=== PATIENT | male | born 1960 | race African-American/Black ===

== ENCOUNTER → 2019-09-25 | Day surgery (SDC) | payer OTHER ==
[2019-09-20 15:15] LABS: ANION GAP 12.9 mmol/L (8-16); BLOOD UREA NITROGEN 18 mg/dL (7-26); BUN/CREATININE RATIO 15 (6-25); CALCIUM 9.7 mg/dL (8.4-10.2); CARBON DIOXIDE 28 mmol/L (22-29); CHLORIDE 101 mmol/L (98-107); CREATININE, SERUM 1.22 mg/dL (0.72-1.25); EST GLOMERULAR FILTRATION RATE > 60 ML/MIN (60-); GLUCOSE 90 mg/dL (74-118); POTASSIUM 3.9 mmol/L (3.5-5.1); SODIUM 138 mmol/L (136-145)
[~2019-09-25] MED LIST: ACETAMINOPHEN 1000 MG/100 ML IV ONE; BUPIVACAINE HCL 0.5% INJ 30 ML VIAL INJ ONE; CEFAZOLIN SOD 1 GM/NS 50ML 100 ML IV ONE; DEXAMETHASONE SOD PHOS INJ 4 MG/ML VIAL ONE; EPHEDRINE SULFATE INJ 50 MG/ML VIAL ONE; FINASTERIDE5 MG PO; FLOMAX0.4 MG PO; HYDROCHLOROTHIA25 MG PO; KETOROLAC TROMETHAMINE 30 MG/ML VIAL ONE; LIDOCAINE HCL 2% LOCAL INJ 5 ML SDV VIAL INJ ONE; LIPITOR10 MG PO; LISINOPRIL10 MG PO; METOPROLOL SUCC50 MG PO; ONDANSETRON HCL INJ 2MG/ML 2ML 2 MG/ML VIAL ONE; PROPOFOL IV EMULSION 10 MG/ML 20 ML VIAL ONE; SEVOFLURANE INHAL SOLN 250 ML PEN BTL ONE
[2019-09-25 09:45] VITALS: BP 114/81
--- NOTE | 2019-09-26 15:34 | Operative Report ---
DATE OF PROCEDURE: 09/25/2019 SURGEON: Ronald Woods MD PREOPERATIVE DIAGNOSES: 1. Right knee medial meniscus tear. 2. Right knee degenerative joint disease. SECONDARY DIAGNOSES: 1. Left knee medial meniscus tear. 2. Left knee degenerative joint disease. PROCEDURES PERFORMED: The patient underwent right knee examination under anesthesia, right knee arthroscopy, right knee partial medial meniscectomy, and right knee chondroplasty of the patella, the trochlea, the medial femoral condyle, the medial tibial plateau, the lateral femoral condyle, and the lateral tibial plateau. Then, the patient underwent a left knee exam under anesthesia, left knee arthroscopy, left knee partial meniscectomy, and left knee chondroplasty of the patella, the trochlea of the medial femoral condyle, the medial tibial plateau, the lateral femoral condyle, and the lateral tibial plateau. ANESTHESIA: General endotracheal intubation anesthesia. IV FLUIDS: Per the Anesthesia record. BRIEF DESCRIPTION OF THE PATIENT'S OPERATIVE PROCEDURE: Mr. Chi was taken to the operating room and placed in supine position on the operating table. Following induction of general anesthesia as well as endotracheal intubation, the patient's bilateral lower extremities were examined under anesthesia. He was found to have bilateral knee effusions. There was no evidence of ligamentous laxity. The patient's lower extremity was prepped and draped in standard surgical fashion. The case was begun by providing the right knee arthroscopy. A two-port technique used to provide the patient right knee arthroscopy. The scope was placed within the knee joint atraumatically. Examination of suprapatellar pouch and medial and lateral gutters found no evidence of loose bodies. There was, however, chondromalacia of the patellar and trochlear surfaces. The scope was advanced to medial compartment. Examination of the medial compartment demonstrated a torn medial meniscus. There was an extruded fragment of the medial meniscus out of the knee towards the medial gutter. A combination of biting forceps and a motorized shaver used to resect the torn portion of the meniscus. The extruded fragment was also pulled back into the knee and excised. Chondroplasties of the medial femoral condyle and medial tibial plateau performed at this time. Scope was advanced to the intercondylar notch. The anterior cruciate ligament was identified and found to be intact. Scope was advanced into the lateral compartment. Chondromalacia of the articulating surfaces were encountered. A chondroplasty of the lateral femoral condyle and lateral tibial plateau performed at this time. The scope was then placed in suprapatellar pouch and chondroplasties of the patella and trochlea were performed. The knee was deflated with sterile normal saline. The portal sites were closed. Attention was then turned to the left knee. A two-port technique used to provide the patient arthroscopic evaluation of the left knee. Scope was placed within the knee joint atraumatically. Examination of the suprapatellar pouch and medial and lateral gutters found no evidence of loose bodies. There was evidence of chondromalacia of the patellar and trochlear surfaces. Scope was advanced into the medial compartment, and there was a greater degree of arthritis in the medial compartment as compared to the right knee. There was a macerated medial meniscus tear. A combination of biting forceps and a motorized shaver were used to resect the torn portion of meniscus. Chondroplasties of the medial femoral condyle and medial tibial plateau were performed at this time. Scope was advanced to the intercondylar notch. The anterior cruciate ligament was identified and found to be intact. The scope was advanced into the lateral compartment and chondroplasties of the lateral tibial plateau and lateral femoral condyle were performed at this time. Scope was advanced into the suprapatellar pouch and chondroplasties of the patella and trochlea were performed. Left knee was then deflated with sterile normal saline. The portal sites were closed. The knee was injected with 0.5% Marcaine with epinephrine. Sterile dressings were applied to both knees. The patient was then awakened and taken to postanesthesia care unit in stable condition. MD CHANTELL Correa/SHWETA /[id number]
== END | disposition home or self-care (01) ==
LOC: OR 05:22
PROVIDERS: ATTEND Specialist
DX: S83.222A Peripheral tear of medial meniscus, current injury, left knee, initial encounter (principal); S83.221A Peripheral tear of medial meniscus, current injury, right knee, initial encounter; M17.0 Bilateral primary osteoarthritis of knee; M22.42 Chondromalacia patellae, left knee; M22.41 Chondromalacia patellae, right knee; I10 Essential (primary) hypertension; R00.1 Bradycardia, unspecified; F41.9 Anxiety disorder, unspecified; X58.XXXA Exposure to other specified factors, initial encounter; Z01.810 Encounter for preprocedural cardiovascular examination; Z01.812 Encounter for preprocedural laboratory examination; Z11.59 Encounter for screening for other viral diseases; Z68.30 Body mass index [BMI] 30.0-30.9, adult; Z87.891 Personal history of nicotine dependence
CPT/HCPCS: 29881; 36415; 80048; 87635; 93005; J0131; J0690; J1100; J1885; J2001; J2405; J2704

== ENCOUNTER 2020-04-30 19:41 | Emergency (ER) | payer OTHER ==
[~2020-04-30] VITALS: Ht 172.7 cm; Wt 90.7 kg
[~2020-04-30 19:41] MED LIST changes: -ACETAMINOPHEN 1000 MG/100 ML IV ONE; -BUPIVACAINE HCL 0.5% INJ 30 ML VIAL INJ ONE; -CEFAZOLIN SOD 1 GM/NS 50ML 100 ML IV ONE; -DEXAMETHASONE SOD PHOS INJ 4 MG/ML VIAL ONE; -EPHEDRINE SULFATE INJ 50 MG/ML VIAL ONE; -KETOROLAC TROMETHAMINE 30 MG/ML VIAL ONE; -LIDOCAINE HCL 2% LOCAL INJ 5 ML SDV VIAL INJ ONE; -ONDANSETRON HCL INJ 2MG/ML 2ML 2 MG/ML VIAL ONE; -PROPOFOL IV EMULSION 10 MG/ML 20 ML VIAL ONE; -SEVOFLURANE INHAL SOLN 250 ML PEN BTL ONE
[2020-04-30] MEDS ORDERED: CEFTRIAXONE SOD 1 GM VIAL IM ONE (20:15)
[2020-04-30] MEDS ORDERED: PREDNISONE 20 MG TAB PO ONE (20:15)
[2020-04-30] MEDS ORDERED: KETOROLAC TROMETHAMINE 60 MG/2 ML VIAL IM ONE (20:15)
[2020-04-30] MEDS ORDERED: ACETAMINOPHEN 325 MG TAB PO ONE (20:15)
[2020-04-30] MEDS ORDERED: PREDNISONE 20 MG TAB ONE (20:35)
[2020-04-30] MEDS ORDERED: KETOROLAC TROMETHAMINE 60 MG/2 ML VIAL ONE (20:35)
[2020-04-30] MEDS ORDERED: CEFTRIAXONE SOD 1 GM VIAL ONE (20:36)
[2020-04-30] MEDS ORDERED: LIDOCAINE HCL 1% LOCAL INJ 20 ML VIAL ONE (20:36)
[2020-04-30] MEDS ORDERED: ACETAMINOPHEN 325 MG TAB ONE (20:36)
[2020-04-30] MEDS ORDERED: AZITHROMYCIN500 MG PO (20:43)
[2020-04-30] MEDS ORDERED: CEFDINIR300 MG PO (20:43)
[2020-04-30] MEDS ORDERED: PREDNISONE20 MG PO (20:43)
[2020-04-30] MEDS ORDERED: BROMFED DM COU118 ML PO (20:47)
[2020-04-30 21:02] VITALS: BP 160/92
== END 2020-04-30 21:02 | disposition home or self-care (01) ==
LOC: FSED 19:50
DX: J20.9 Acute bronchitis, unspecified (principal); J06.9 Acute upper respiratory infection, unspecified; R51.9 Headache, unspecified; R05 Cough; I10 Essential (primary) hypertension; E11.9 Type 2 diabetes mellitus without complications; E78.00 Pure hypercholesterolemia, unspecified
CPT/HCPCS: 36415; 82948; 87400; 96372; 99283; J0696; J1885; J2001; J7512

== ENCOUNTER 2021-10-05 08:11 | Emergency (ER) | payer OTHER ==
[~2021-10-05] VITALS: Ht 172.7 cm; Wt 88.5 kg
[~2021-10-05 08:11] MED LIST changes: +AZITHROMYCIN500 MG PO; +BROMFED DM COU118 ML PO; +CEFDINIR300 MG PO; +PREDNISONE20 MG PO
[2021-10-05] MEDS ORDERED: AMOX TR-K CLV1 EAC2 PO (09:15)
== END 2021-10-05 09:51 | disposition home or self-care (01) ==
LOC: FSED 08:11
DX: J01.90 Acute sinusitis, unspecified (principal); I10 Essential (primary) hypertension; E78.5 Hyperlipidemia, unspecified; E11.9 Type 2 diabetes mellitus without complications; E78.00 Pure hypercholesterolemia, unspecified
CPT/HCPCS: 99282

== ENCOUNTER → 2024-03-30 | Day surgery (SDC) | payer OTHER ==
[~2024-03-30] MED LIST changes: +AMLODIPINE-BEN1 EAC5 PO; +AMOX TR-K CLV1 EAC2 PO; +FENTANYL CITRATE/PF 100MCG/2 ML INJ ONE; +GLYCOPYRROLATE INJ 0.2 MG/ML VIAL ONE; +LIDOCAINE HCL 2% LOCAL INJ 5 ML SDV VIAL INJ ONE; +METFORMIN HCL500 MG PO; +MIDAZOLAM HCL 2 MG/2 ML VIAL ONE; +ONDANSETRON ODT4 MG PO; +PANTOPRAZOLE SO40 MG PO; +PROPOFOL IV EMULSION 10 MG/ML 20 ML VIAL ONE; +VITAMIN B COMP1 EACH PO
[2024-03-30] MEDS: LACTATED RINGER'S 1,000 ML ONE (08:16)
[2024-03-30 10:10] VITALS: BP 107/80; PULSE 64; RESP 16; TEMP 97.8; O2SAT 97
== END | disposition home or self-care (01) ==
LOC: OR 07:15
PROVIDERS: ATTEND Internal Medicine Gastroenterology
DX: K29.50 Unspecified chronic gastritis without bleeding (principal); B96.81 Helicobacter pylori [H. pylori] as the cause of diseases classified elsewhere; K44.9 Diaphragmatic hernia without obstruction or gangrene; K21.9 Gastro-esophageal reflux disease without esophagitis; K59.00 Constipation, unspecified; K76.0 Fatty (change of) liver, not elsewhere classified; E11.9 Type 2 diabetes mellitus without complications; I10 Essential (primary) hypertension; Z01.810 Encounter for preprocedural cardiovascular examination; Z79.84 Long term (current) use of oral hypoglycemic drugs; Z79.899 Other long term (current) drug therapy; Z68.31 Body mass index [BMI] 31.0-31.9, adult; Z87.19 Personal history of other diseases of the digestive system
CPT/HCPCS: 43239; 93005; J2003; J2250

== ENCOUNTER 2024-04-22 14:23 | Emergency (ER) | payer OTHER ==
[~2024-04-22] VITALS: Ht 172.7 cm; Wt 94.6 kg
[~2024-04-22 14:23] MED LIST changes: -FENTANYL CITRATE/PF 100MCG/2 ML INJ ONE; -GLYCOPYRROLATE INJ 0.2 MG/ML VIAL ONE; -LIDOCAINE HCL 2% LOCAL INJ 5 ML SDV VIAL INJ ONE; -MIDAZOLAM HCL 2 MG/2 ML VIAL ONE; -PROPOFOL IV EMULSION 10 MG/ML 20 ML VIAL ONE
[2024-04-22] MEDS ORDERED: OMEPRAZOLE40 MG PO (15:11)
[2024-04-22] MEDS ORDERED: METOPROLOL TART50 MG PO (15:11)
[2024-04-22] MEDS ORDERED: POLYETHYLENE GL17 GM PO (15:11)
[2024-04-22] MEDS ORDERED: METRONIDAZOLE500 MG PO (15:11)
[2024-04-22] MEDS ORDERED: TETRACYCLINE H500 MG PO (15:11)
[2024-04-22] MEDS ORDERED: LOTREL 5-20 MG1 EACH (15:11)
[2024-04-22] MEDS ORDERED: PROBIOTIC & AC1 EACH PO (15:39)
[2024-04-22 15:48] VITALS: PULSE 73; RESP 16; TEMP 98.1; O2SAT 95
== END 2024-04-22 15:48 | disposition home or self-care (01) ==
LOC: FSED 14:30
DX: R05.9 Cough, unspecified (principal); J06.9 Acute upper respiratory infection, unspecified; R19.7 Diarrhea, unspecified; I10 Essential (primary) hypertension; E11.9 Type 2 diabetes mellitus without complications; R51.9 Headache, unspecified; E78.5 Hyperlipidemia, unspecified; K21.9 Gastro-esophageal reflux disease without esophagitis; R53.81 Other malaise; M54.9 Dorsalgia, unspecified; G89.29 Other chronic pain; Z11.52 Encounter for screening for COVID-19; Z96.653 Presence of artificial knee joint, bilateral
CPT/HCPCS: 0223U; 71046; 83518; 87400; 99283

== ENCOUNTER 2024-11-27 09:57 | Emergency (ER) | payer MEDICARE, OTHER ==
[~2024-11-27] VITALS: Ht 172.7 cm; Wt 95.7 kg
[~2024-11-27 09:57] MED LIST changes: +LOTREL 5-20 MG1 EACH; +METOPROLOL TART50 MG PO; +METRONIDAZOLE500 MG PO; +OMEPRAZOLE40 MG PO; +POLYETHYLENE GL17 GM PO; +PROBIOTIC & AC1 EACH PO; +TETRACYCLINE H500 MG PO
[2024-11-27] MEDS: ACETAMINOPHEN 325 MG TAB PO ONE (10:55)
[2024-11-27 11:27] VITALS: PULSE 55; RESP 18; TEMP 97.5; O2SAT 99
== END 2024-11-27 11:27 | disposition home or self-care (01) ==
LOC: FSED 10:14
DX: R05.9 Cough, unspecified (principal); J06.9 Acute upper respiratory infection, unspecified; R51.9 Headache, unspecified; I10 Essential (primary) hypertension; E11.9 Type 2 diabetes mellitus without complications; E78.5 Hyperlipidemia, unspecified; K21.9 Gastro-esophageal reflux disease without esophagitis; M54.9 Dorsalgia, unspecified; G89.29 Other chronic pain; Z11.52 Encounter for screening for COVID-19
CPT/HCPCS: 0223U; 87400; 99283